=== PATIENT | female | born 1960 | race Caucasian/White ===

== ENCOUNTER 2017-03-05 17:49 | Emergency (ER) | payer BC ==
[2017-03-05 18:33] VITALS: BP 107/71
--- NOTE | 2017-03-05 18:36 | UC ---
HPI Febrile Illness - HPI Summary HPI Summary: 57 YEAR OLD FEMALE PRESENTS WITH COLD LIKE SYMPTOMS - History of Current Complaint Chief Complaint: UCRespiratory Time Seen by Provider: 03/05/17 18:36 Hx Obtained From: Patient Hx Last Menstrual Period: 06/02/2006 Onset/Duration: Started Minutes Ago Timing: Constant Initial Severity: Moderate Current Severity: Moderate - Allergy/Home Medications Allergies/Adverse Reactions: Allergies Allergy/AdvReac Type Severity Reaction Status Date / Time No Known Allergies Allergy Verified 03/05/17 18:33 Home Medications: Home Medications Melatonin 1 mg PO BEDTIME 03/05/17 [History Confirmed 03/05/17] Naproxen [Naproxen DR 500 MG TAB] 250 mg PO BID PRN 03/05/17 [History Confirmed 03/05/17] PMH/Surg Hx/FS Hx/Imm Hx - Surgical History Surgical History: None - Social History Alcohol Use: None Substance Use Type: None Smoking Status (MU): Heavy Every Day Tobacco Smoker Type: Cigarettes Amount Used/How Often: 1/2 PPD Length of Time of Smoking/Using Tobacco: 41 years Have You Smoked in the Last Year: Yes Household Exposure Type: Cigarettes - Immunization History Most Recent Influenza Vaccination: none Most Recent Tetanus Shot: 2000 Review of Systems Constitutional: Negative Skin: Negative Eyes: Negative ENT: Sinus Congestion Respiratory: Negative Cardiovascular: Negative Gastrointestinal: Negative Genitourinary: Negative Motor: Negative Neurovascular: Negative Musculoskeletal: Negative Neurological: Negative Psychological: Negative All Other Systems Reviewed And Are Negative: Yes Physical Exam Triage Information Reviewed: Yes Vital Signs: Initial Vital Signs Temp 37.2 C 03/05/17 18:29 Pulse 95 03/05/17 18:29 Resp 16 03/05/17 18:29 BP 107/71 03/05/17 18:29 Pulse Ox 97 03/05/17 18:29 Vital Signs Reviewed: Yes Eye Exam: Normal ENT: Positive: Nasal congestion Dental Exam: Normal Neck exam: Normal Neck: Positive: 1 Respiratory Exam: Normal Cardiovascular Exam: Normal Abdominal Exam: Normal Musculoskeletal Exam: Normal Neurological Exam: Normal Psychological Exam: Normal Skin Exam: Normal Course/Dx - Diagnoses Clinic Provider Diagnoses: SINUSITIS Discharge - Discharge Plan Condition: Stable Disposition: HOME Prescriptions: Amoxicillin PO (*) [Amoxicillin 500 MG CAP*] 500 mg PO TID #30 cap Patient Education Materials: Upper Respiratory Infection (ED) Referrals: Vernon Jacobson MD [Primary Care Provider] -
== END 2017-03-05 18:50 | disposition home or self-care (01) ==
LOC: UCEAST 17:49
DX: J32.9 Chronic sinusitis, unspecified (principal); F17.210 Nicotine dependence, cigarettes, uncomplicated
CPT/HCPCS: 99212; G0463

== ENCOUNTER 2017-05-07 08:44 | Emergency (ER) | payer BC ==
[2017-05-07] MEDS ORDERED: Albuterol/Ipratropium NEB.SOL* Albuterol 2.5 MG/Ipratropium 0.5 MG 3 ML INH ONE (10:03)
--- NOTE | 2017-05-07 10:08 | UC ---
HPI Febrile Illness - HPI Summary HPI Summary: Pt presents with complaint of cough, chills, fatigue, head congestion x 2 weeks. Pt states cough increasing x 3 days + yellow sputum. no documented fevers. pt has taken otc cough medication with short term relief. + wheeze and rhonci. Pt with sick family members pt does smoke cigarettes. Pt's medications reviewed this visit - History of Current Complaint Chief Complaint: UCGeneralIllness Time Seen by Provider: 05/07/17 09:39 Hx Obtained From: Patient Hx Last Menstrual Period: 06/02/2006 Onset/Duration: Started Days Ago Timing: Intermittent Initial Severity: Mild Current Severity: Moderate - Allergy/Home Medications Allergies/Adverse Reactions: Allergies Allergy/AdvReac Type Severity Reaction Status Date / Time No Known Allergies Allergy Verified 05/07/17 08:55 Home Medications: Home Medications Guaifenesin [Mucinex Maximum Strength] 05/07/17 [History] PMH/Surg Hx/FS Hx/Imm Hx Previously Healthy: Yes - Surgical History Surgical History: None - Social History 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 Lives: With Family Alcohol Use: None Substance Use Type: None Smoking Status (MU): Heavy Every Day Tobacco Smoker Type: Cigarettes Amount Used/How Often: 1/2 PPD Length of Time of Smoking/Using Tobacco: 41 years Have You Smoked in the Last Year: Yes Household Exposure Type: Cigarettes - Immunization History Most Recent Influenza Vaccination: none Most Recent Tetanus Shot: 2000 Review of Systems Constitutional: Chills, Fatigue Skin: Negative Eyes: Negative ENT: Nasal Discharge, Sinus Congestion Respiratory: Cough Gastrointestinal: Negative All Other Systems Reviewed And Are Negative: Yes Physical Exam Triage Information Reviewed: Yes Appearance: Well-Appearing, No Pain Distress, Well-Nourished Vital Signs: Initial Vital Signs Temp 98.9 F 05/07/17 08:56 Pulse 77 05/07/17 08:56 Resp 16 05/07/17 08:56 BP 124/73 05/07/17 08:56 Pulse Ox 98 05/07/17 08:56 Eye Exam: Normal Eyes: Positive: Conjunctiva Clear ENT: Positive: Hearing grossly normal, Pharynx normal, Nasal congestion, TMs normal, Uvula midline Dental Exam: Normal Neck exam: Normal Neck: Positive: Supple, Nontender, No Lymphadenopathy Respiratory Exam: Normal Respiratory: Positive: Chest non-tender, Lungs clear, Wheezing - few scattered wheeze speaking full easy sentences no retraction Cardiovascular Exam: Normal Cardiovascular: Positive: RRR, No Murmur Abdominal Exam: Normal Abdomen Description: Positive: Nontender, No Organomegaly, Soft Bowel Sounds: Positive: Present Musculoskeletal Exam: Normal Musculoskeletal: Positive: Strength Intact Neurological Exam: Normal Neurological: Positive: Alert Psychological Exam: Normal Skin Exam: Normal Diagnostics - Radiology No standard instances Xray Interpretation: Positive (See Comments) Radiology Interpretation Completed By: Radiologist - + enlarged LN copd nad Re-Evaluation - Re-Evaluation First Eval Comment: reviewed CXR with pt. no recent mammogram. breast exam unremarkable, no masses. pt with palpable ln in left axilla. reviewed with pcp. given xray images. will f/u with pcp - pt also given referral to physician services. states understanding and agreement with plan Course/Dx - Course Assessment/Plan: Pt presents with fatigue, cough, congestion progressive x 2 weeks. Pt with intermittent cough and wheeze. with h.o tobacco use. will check cxr. secretion precautions. anticipate abx - Diagnoses Clinic Provider Diagnoses: bronchitis. enlarged LN Discharge - Discharge Plan Condition: Stable Disposition: HOME Prescriptions: Albuterol HFA INHALER* [Ventolin HFA Inhaler*] 1 puff INH Q4H PRN #1 mdi PRN Reason: wheeze DOXYcycline CAP(*) [DOXYcycline 100MG CAP(*)] 100 mg PO BID #14 cap Patient Education Materials: Lymphadenopathy (ED), Acute Bronchitis (ED) Forms: *Work Release Referrals: [facility] [place] PHYSICIAN REFERRAL [Outside] No Primary Care Phys,NOPCP [Primary Care Provider] - Additional Instructions: - - Stay well hydrated. Drink plenty of non-alcoholic, non-caffinated beverages. - use inhaler, 2 puffs every 4 hours for wheezing - After you have been on antibiotics for 2 days - change your toothbrush and your pillowcase. These infections are spread by secretions - do NOT share eating or drinking utensils - clean items you share with other people such as cell phones, computer mouse, TV remote, computer tablets, etc - Alternate ibuprofen (Advil, Motrin) 600mg and Tylenol every 3 hours for pain or fever. Take with food. Do NOT take for more than 4-5 days. The doctor that evaluated you today reviewed your chest radiograph and discussed with you your emlarged lymph node. As was discussed, it is recommended you schedule a follow-up appointment with your primary care doctor. IF you do not have a doctor, you may call the physician referral number provided
--- NOTE | 2017-05-07 10:30 | RAD ---
INDICATION: Cough and fever COMPARISON: Most recent comparison chest x-rays dated June 14, 2007 TECHNIQUE: PA and lateral views of the chest were obtained. FINDINGS: The heart and mediastinum are normal in size and contour. On the AP view the lungs appear hyperaerated with the lung volume extending to the 11th ribs. On the lateral view there is flattening the diaphragm and increased retrosternal airspace. There is no large lobar or focal consolidation. Overlying the left axilla there is a nodule measuring 9 x 15 mm. Visualized bones are normal for the patient's age. There is no radiographic evidence of free air beneath the diaphragm IMPRESSION: 1. STIGMATA OF CHRONIC OBSTRUCTIVE PULMONARY DISEASE WITHOUT IDENTIFICATION OF ACUTE CARDIOPULMONARY ABNORMALITY. 2. DENSE NODULE OVERLYING THE LEFT AXILLA MEASURING 9 X 15 MM. PLEASE CORRELATE TO PHYSICAL EXAMINATION FINDINGS OF AXILLARY LYMPHADENOPATHY.
[2017-05-07 11:13] VITALS: BP 128/84
== END 2017-05-07 11:20 | disposition home or self-care (01) ==
LOC: UCEAST 08:44
DX: J40 Bronchitis, not specified as acute or chronic (principal); R59.9 Enlarged lymph nodes, unspecified; F17.210 Nicotine dependence, cigarettes, uncomplicated
CPT/HCPCS: 71020; 99212; A9270-GY; G0463

== ENCOUNTER 2017-07-10 09:24 | Emergency (ER) | payer BC ==
[2017-07-10 09:42] VITALS: BP 136/77
--- NOTE | 2017-07-10 10:54 | UC ---
UC General HPI - HPI Summary HPI Summary: cough, fever, chills no weight loss on/off for 4 months---patient has been on 2 courses of antibiotics with out relief, patient continues to smoke and has not followed up with primary care as recommended - History of Current Complaint Chief Complaint: UCGeneralIllness Stated Complaint: CONGESTED, COUGH, FEVER Time Seen by Provider: 07/10/17 10:36 Hx Obtained From: Patient Hx Last Menstrual Period: 06/02/2006 Onset/Duration: Gradual Onset, Lasting Weeks - 16, Still Present Onset Severity: Mild Current Severity: Mild Pain Intensity: 0 Associated Signs & Symptoms: Positive: Cough, Diarrhea, Fever, Nausea, Other - fatigue - Allergy/Home Medications Allergies/Adverse Reactions: Allergies Allergy/AdvReac Type Severity Reaction Status Date / Time No Known Allergies Allergy Verified 07/10/17 09:42 Home Medications: Home Medications Cough Medicine 30 ml PO Q4HR PRN 07/10/17 [History Confirmed 07/10/17] PMH/Surg Hx/FS Hx/Imm Hx Previously Healthy: No - patient has COPD but reports self as health but admits to not seeking medic Respiratory History: COPD - Surgical History Surgical History: None - Family History Known Family History: Positive: None - Social History 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 Lives: With Family Alcohol Use: None Substance Use Type: None Smoking Status (MU): Heavy Every Day Tobacco Smoker Type: Cigarettes Amount Used/How Often: 1 pack per week Length of Time of Smoking/Using Tobacco: 41 years Have You Smoked in the Last Year: Yes Household Exposure Type: Cigarettes - Immunization History Most Recent Influenza Vaccination: none Most Recent Tetanus Shot: 2000 Review of Systems Constitutional: Chills, Fatigue Skin: Negative Eyes: Negative ENT: Negative Respiratory: Cough Cardiovascular: Negative Gastrointestinal: Diarrhea, Nausea Genitourinary: Negative Motor: Negative Neurovascular: Negative Musculoskeletal: Negative Neurological: Negative Psychological: Negative Is Patient Immunocompromised?: No All Other Systems Reviewed And Are Negative: Yes Physical Exam Triage Information Reviewed: Yes Appearance: No Pain Distress, Ill-Appearing - appears older than stated age, Thin Vital Signs: Initial Vital Signs Temp 98.2 F 07/10/17 09:37 Pulse 84 07/10/17 09:37 Resp 18 07/10/17 09:37 BP 136/77 02/08/18 09:37 Pulse Ox 98 07/10/17 09:37 Vital Signs Reviewed: Yes Eye Exam: Normal Eyes: Positive: Conjunctiva Clear ENT Exam: Normal ENT: Positive: Normal ENT inspection, Hearing grossly normal, Pharynx normal, TMs normal, Uvula midline. Negative: Nasal congestion, Tonsillar swelling, Tonsillar exudate, Trismus, Muffled voice, Hoarse voice, Dental tenderness, Sinus tenderness Dental Exam: Normal Neck exam: Normal Neck: Positive: Supple, Nontender, Enlarged Nodes @ - right anterior cervical Respiratory Exam: Normal Respiratory: Positive: Chest non-tender, Lungs clear, No respiratory distress, No accessory muscle use, Decreased breath sounds Cardiovascular Exam: Normal Cardiovascular: Positive: RRR, No Murmur, Pulses Normal, Brisk Capillary Refill Abdominal Exam: Normal Abdomen Description: Positive: Nontender, No Organomegaly, Soft. Negative: CVA Tenderness (R), CVA Tenderness (L), Distended, Guarding, McBurney's Point Tenderness, Peritoneal Signs Bowel Sounds: Positive: Present Musculoskeletal Exam: Normal Musculoskeletal: Positive: Strength Intact, ROM Intact, No Edema Neurological Exam: Normal Neurological: Positive: Alert, Muscle Tone Normal Psychological Exam: Normal Skin Exam: Normal Course/Dx - Course Course Of Treatment: lab studies, rest, nicotine cesasation , follow as kamaljit with primary health care provider as planned-patient is agreeable and understands the importance of comprehensive follow up - Differential Dx - Multi-Symptom Provider Diagnoses: Lymphadenopathy, nicotine dependent, viral syndrome Discharge - Discharge Plan Condition: Stable Disposition: HOME Prescriptions: Benzonatate CAP* [Tessalon 100 MG CAP*] 100 mg PO TID PRN #30 cap PRN Reason: cough guaiFENesin/CODIEN 100MG-10MG* [Robitussin AC 100Mg-10Mg*] 5 - 10 ml PO Q4H PRN #120 ml MDD 40 PRN Reason: cough Patient Education Materials: How to Stop Smoking (ED), Lymphadenopathy (ED), COPD (Chronic Obstructive Pulmonary Disease) (ED), Chronic Cough (ED) Referrals: [facility] [place] PH[facility]ICIAN REFERRAL [Outside] - As Soon As Possible Srinivas BULLOCK,Jonathan Braun [Physician Washing Machine Assembler] - As Soon As Possible Additional Instructions: I am very concerned about you being still sick :( I am also very concerned about the swollen Lymph tissue that was identified on x-ray during your last visit-I understand you are working had taking care of your family but this is the time to do some preventive care and health maintenance for your self so you can continue to take care of them!-- Good Gravity Quitting smoking it is had work but you impress me as someone who works hard when she puts her mind to it!! [facility]! Just like we talked about :)
[2017-07-10 16:17] LABS: Hematocrit 40 % (35-47); Hemoglobin 13.5 g/dl (12.0-16.0); Mean Corpuscular HGB Conc 34 g/dl (31-36); Mean Corpuscular Hemoglobin 30 pg (27-31); Mean Corpuscular Volume 89 fL (80-97); Mean Platelet Volume 10 um3 (7.4-10.4); Platelet Count 160 10^3/ul (150-450); Red Blood Count 4.51 10^6/ul (4.0-5.4); Red Cell Distribution Width 15 % (10.5-15); White Blood Count 6.2 10^3/ul (3.5-10.8)
[2017-07-10 16:20] LABS: ABS Basophils 0 10^3/ul (0-0.2); ABS Eosinophils 0.1 10^3/ul (0-0.6); ABS Lymphocytes 1.9 10^3/ul (1.0-4.8); ABS Monocytes 0.4 10^3/ul (0-0.8); ABS Neutrophils 3.7 10^3/ul (1.5-7.7); ABS Nucleated RBC 0 10^3/ul; Eosinophil % 0.9 % (0-6); Lymphocyte % 30.8 % (25-47); Nucleated Red Blood Cells % 0.1
[2017-07-10 16:27] LABS: EGFR Non-African American 79.1 (>60)
== END 2017-07-10 11:10 | disposition home or self-care (01) ==
LOC: UCEAST 09:24
DX: B34.9 Viral infection, unspecified (principal); R59.1 Generalized enlarged lymph nodes; J44.9 Chronic obstructive pulmonary disease, unspecified; F17.210 Nicotine dependence, cigarettes, uncomplicated
CPT/HCPCS: 36415; 80053; 85025; 99212; G0463

== ENCOUNTER 2018-03-13 15:02 | Emergency (ER) | payer BC ==
[2018-03-13 15:56] VITALS: BP 111/76
--- NOTE | 2018-03-13 15:58 | UC ---
Respiratory Complaint HPI - HPI Summary HPI Summary: 58 yo female presents with a dry cough for the last week. She has a hx of bronchitis due to her smoking. Has been taking dayquill and nyquill without relief. Denies fever, chills, SOB, chest pain. She is still smoking daily. - History of Current Complaint Chief Complaint: UCRespiratory Stated Complaint: URI Time Seen by Provider: 03/13/18 15:58 Hx Obtained From: Patient Hx Last Menstrual Period: 06/02/2006 Severity Currently: None Pain Intensity: 0 Character: Cough: Nonproductive - Allergies/Home Medications Allergies/Adverse Reactions: Allergies Allergy/AdvReac Type Severity Reaction Status Date / Time No Known Allergies Allergy Verified 03/13/18 15:56 Home Medications: Home Medications D-Methorphan/PE/Acetaminophen [Multi Symptom Flu & Sever 20-10-500 mg] 1 pow PO 03/13/18 [History] Dm/Acetaminophen/Doxylamine [Vicks Nyquil Cold & Flu N 15-6.25-325 mg] 1 cap PO 03/13/18 [History] PMH/Surg Hx/FS Hx/Imm Hx Respiratory History: COPD - Surgical History Surgical History: None - Family History Known Family History: Positive: None - Social History Lives: With Family Alcohol Use: None Substance Use Type: None Smoking Status (MU): Heavy Every Day Tobacco Smoker Type: Cigarettes Amount Used/How Often: 1 pack per week Length of Time of Smoking/Using Tobacco: 41 years Have You Smoked in the Last Year: Yes Household Exposure Type: Cigarettes - Immunization History Most Recent Influenza Vaccination: none Most Recent Tetanus Shot: 2000 Review of Systems Constitutional: Negative Skin: Negative Eyes: Negative ENT: Negative Respiratory: Cough Cardiovascular: Negative Gastrointestinal: Negative Neurological: Negative Psychological: Negative All Other Systems Reviewed And Are Negative: Yes Physical Exam - Summary Physical Exam Summary: GENERAL: NAD. WDWN. No pain distress. SKIN: No rashes, sores, lesions, or open wounds. HEENT: Head: AT/NC Eyes: Conjunctiva clear without inflammation or discharge. Ears: Hearing grossly normal. TMs intact, no bulging, erythema, or edema. Nose: Nasal mucosa pink and moist. NTTP maxillary and frontal sinus. Throat: Posterior oropharynx without exudates, erythema, or tonsillar enlargement. Uvula midline. NECK: Supple. Nontender. No lymphadenopathy. CHEST: Decreased and distant breath sounds throughout. No r/r/w. No accessory muscle use. Breathing comfortably and in no distress. CV: RRR. Without m/r/g. Pulses intact. Cap refill <2seconds NEURO: Alert. PSYCH: Age appropriate behavior. Triage Information Reviewed: Yes Vital Signs: Initial Vital Signs Temp 97.9 F 03/13/18 15:38 Pulse 80 03/13/18 15:38 Resp 18 03/13/18 15:38 BP 111/76 03/13/18 15:38 Pulse Ox 96 03/13/18 15:38 Vital Signs Reviewed: Yes Diagnostic Evaluation - Laboratory O2 Sat by Pulse Oximetry: 96 Respiratory Course/Dx - Course Course Of Treatment: Pt declined CXR and duoneb treatment today. Suspect COPD exacerbation, will rx for zpak and prednisone and have her f/u with her PCP if she does not improve. - Differential Dx/Diagnosis Provider Diagnoses: COPD exacerbation Discharge - Sign-Out/Discharge Documenting (check all that apply): Patient Departure All imaging exams completed and their final reports reviewed: No Studies - Discharge Plan Condition: Stable Disposition: HOME Prescriptions: Azithromycin TAB* [Zithromax TAB (Z-JUANA) 250 mg #6 tabs] 2 tab PO .TODAY, THEN 1 DAILY #1 juana predniSONE TAB* [Deltasone 20 MG TAB*] 40 mg PO DAILY #9 tab Patient Education Materials: COPD (Chronic Obstructive Pulmonary Disease) (DC) Referrals: Jonathan Best [Primary Care Provider] - Additional Instructions: If you develop a fever, shortness of breath, chest pain, new or worsening symptoms - please call your PCP or go to the ED. 1) Continue to use your ProAir inhaler 2) Try to cut back on smoking - Billing Disposition and Condition Condition: STABLE Disposition: Home - Attestation Statements Provider Attestation: Per institutional requirements, I have reviewed the chart, however, I was not consulted specifically or made aware of this patient by the midlevel provider. I did not personally evaluate, interact with , or disposition this patient.
== END 2018-03-13 16:12 | disposition home or self-care (01) ==
LOC: UCEAST 15:02
DX: J44.1 Chronic obstructive pulmonary disease with (acute) exacerbation (principal); F17.210 Nicotine dependence, cigarettes, uncomplicated
CPT/HCPCS: 99212; G0463

== ENCOUNTER 2018-09-12 07:40 | Emergency (ER) | payer BC ==
[2018-09-12 07:48] VITALS: BP 113/70
[2018-09-12 08:10] LABS: Influenza A Molecular NEGATIVE (Negative); Influenza B Molecular NEGATIVE (Negative)
--- NOTE | 2018-09-12 08:33 | UC ---
Throat Pain/Nasal Walt HPI - HPI Summary HPI Summary: 58-year-old female presents with 8-10 day history of nasal congestion, sinus pain, postnasal drip, mild sore throat, and an occasionally productive cough for yellow sputum. States this morning she also had a couple of episodes of "soft" bowel movements. Denies fever, chills, ear pain, dysphagia, chest pain, shortness of breath, abdominal pain, nausea, or vomiting. - History of Current Complaint Chief Complaint: UCRespiratory Stated Complaint: SINUS ISSUES Time Seen by Provider: 09/12/18 08:30 Hx Obtained From: Patient Hx Last Menstrual Period: 06/02/2006 Pain Intensity: 0 - Allergies/Home Medications Allergies/Adverse Reactions: Allergies Allergy/AdvReac Type Severity Reaction Status Date / Time No Known Allergies Allergy Verified 09/12/18 07:49 Home Medications: Home Medications Varenicline Tartrate [Chantix] 1 tab PO DAILY 09/12/18 [History Confirmed ] PMH/Surg Hx/FS Hx/Imm Hx Respiratory History: COPD - Surgical History Surgical History: None - Family History Known Family History: Positive: Non-Contributory - Social History Occupation: Employed Full-time Lives: With Family Alcohol Use: None Substance Use Type: None Smoking Status (MU): Heavy Every Day Tobacco Smoker Type: Cigarettes Amount Used/How Often: 1 pack per week Length of Time of Smoking/Using Tobacco: 41 years Have You Smoked in the Last Year: Yes Household Exposure Type: Cigarettes - Immunization History Most Recent Influenza Vaccination: none Most Recent Tetanus Shot: 2000 Review of Systems All Other Systems Reviewed And Are Negative: Yes Constitutional: Negative: Fever, Chills Skin: Negative: Rash Eyes: Negative: Drainage, Eye Redness ENT: Positive: Sore Throat, Nasal Discharge, Sinus Congestion, Sinus Pain/ Tenderness. Negative: Ear Ache Respiratory: Positive: Cough. Negative: Shortness Of Breath Cardiovascular: Negative: Palpitations, Chest Pain Gastrointestinal: Positive: Diarrhea. Negative: Abdominal Pain, Vomiting, Nausea Genitourinary: Positive: Negative Musculoskeletal: Positive: Negative Neurological: Positive: Negative Is Patient Immunocompromised?: No Physical Exam - Summary Physical Exam Summary: GENERAL APPEARANCE: Alert and cooperative older adult female who appears older than stated age in no acute distress. EYES: Conjunctiva clear. No drainage. EARS: External auditory canals and tympanic membranes clear, hearing grossly intact. NOSE: Mild-moderate nasal congestion with mucosal erythema and edema. THROAT: Mild pharyngeal erythema with cobblestoning. No tonsilar inflammation, swelling, exudate, or lesions. Uvula midline. NECK: Neck supple, non-tender without lymphadenopathy. CARDIAC: Normal S1 and S2. No S3, S4 or murmurs. Rhythm is regular. There is no peripheral edema, cyanosis or pallor. Extremities are warm and well perfused. Capillary refill is less than 2 seconds. Peripheral pulses intact. LUNGS: Clear to auscultation without rales, rhonchi, wheezing or diminished breath sounds. Non-productive cough. ABDOMEN: Positive bowel sounds. Soft, nondistended, nontender. No guarding or rebound. No masses or hepatosplenomegally. MUSKULOSKELETAL: ROM intact to all extremities. No joint erythema or tenderness. Normal muscular development. Normal gait. SKIN: Skin normal color, texture and turgor with no lesions or eruptions. Triage Information Reviewed: Yes Vital Signs: Initial Vital Signs Temp 98.2 F 09/12/18 07:46 Pulse 93 09/12/18 07:46 Resp 18 09/12/18 07:46 BP 113/70 09/12/18 07:46 Pulse Ox 97 09/12/18 07:46 Vital Signs Reviewed: Yes Throat Pain/Nasal Course/Dx - Course Course Of Treatment: 58-year-old female presents with 8-10 day history of nasal congestion, sinus pain, postnasal drip, mild sore throat, and an occasionally productive cough for yellow sputum. States this morning she also had a couple of episodes of "soft" bowel movements. Denies fever, chills, ear pain, dysphagia, chest pain, shortness of breath, abdominal pain, nausea, or vomiting. Afebrile. Vital signs stable. Exam was remarkable for mild to moderate nasal congestion with mucosal erythema and edema, mild pharyngeal erythema with cobblestoning, nonproductive cough, and clear bilateral breath sounds. Rapid flu negative. Considering the duration of her symptoms and her underlying COPD I will start her on Augmentin 875 mg twice a day 10 days as well as recommend symptomatic treatment for an acute sinusitis. She is to follow-up with her primary care provider in 5 days if symptoms are not improving. Anticipatory guidance and warning symptoms were reviewed with the patient. Verbalizes understanding and agrees with plan of care. - Differential Dx/Diagnosis Differential Diagnosis/HQI/PQRI: Influenza, Sinusitis, URI Provider Diagnosis: Acute maxillary sinusitis Discharge - Sign-Out/Discharge Documenting (check all that apply): Patient Departure All imaging exams completed and their final reports reviewed: No Studies - Discharge Plan Condition: Stable Disposition: HOME Prescriptions: Amoxicillin/Clavulanate TAB* [Augmentin TAB 875*] 875 mg PO BID #20 tab Fluticasone NASAL SPRAY 50MCG* [Flonase NASAL SPRAY 50MCG*] 2 spray BOTH NARES DAILY #1 btl Patient Education Materials: Sinusitis (ED) Referrals: Srinivas BULLOCK,Jonathan Braun [Primary Care Provider] - 5 Days Additional Instructions: Your history and exam are consistent with a sinus infection. Considering the duration of your symptoms we will start you on an antibiotic. Start Augmentin 875 mg 1 tab twice a day for 10 days. Drink plenty of fluids to avoid dehydration especially if you are running any fever. Use a saline rinse kit such as Neti Pot or NeilMed at least twice a day to help thin secretions and promote drainage of the sinuses. Use fluticasone (Flonase) nasal spray 2 sprays each nostril once daily. Take over the counter acetaminophen (Tylenol) or ibuprofen (Advil, Motrin) according to directions as needed for pain or fever. Follow up with your primary care provider in 5 days if symptoms persist. Seek immediate medical attention in the emergency room if you have fever greater than 100.5 F despite taking acetaminophen or ibuprofen, have chest pain , difficulty breathing, are unable to swallow, or have any worsening of symptoms. - Billing Disposition and Condition Condition: STABLE Disposition: Home
== END 2018-09-12 08:48 | disposition home or self-care (01) ==
LOC: UCEAST 07:40
DX: J01.00 Acute maxillary sinusitis, unspecified (principal); J44.9 Chronic obstructive pulmonary disease, unspecified; F17.210 Nicotine dependence, cigarettes, uncomplicated
CPT/HCPCS: 99212; G0463

== ENCOUNTER 2019-02-18 09:00 | Emergency (ER) | payer BC ==
[2019-02-18 09:13] VITALS: BP 120/76
--- NOTE | 2019-02-18 10:17 | UC ---
Throat Pain/Nasal Walt HPI - HPI Summary HPI Summary: Patient is a 58yo female presenting with nasal congestion and sinus pressure x2 days. Notes sore throat. Denies cough. Denies ear pain and itchy/watery eyes. Denies SOB, wheezing, and difficulty breathing. Denies headache and fever. Notes chills this morning. Denies n/v/d. Patient states she is a smoker and has seasonal allergies. She is unsure if this is allergies or not. - History of Current Complaint Chief Complaint: UCRespiratory Stated Complaint: sinUS CONGESTION Time Seen by Provider: 02/18/19 10:02 Hx Obtained From: Patient Hx Last Menstrual Period: 06/02/2006 Onset/Duration: Gradual Onset, Lasting Days Severity: Mild Pain Intensity: 0 Pain Scale Used: 0-10 Numeric - Allergies/Home Medications Allergies/Adverse Reactions: Allergies Allergy/AdvReac Type Severity Reaction Status Date / Time No Known Allergies Allergy Verified 02/18/19 09:14 PMH/Surg Hx/FS Hx/Imm Hx - Surgical History Surgical History: None - Family History Known Family History: Positive: Non-Contributory - Social History Alcohol Use: None Substance Use Type: None Smoking Status (MU): Heavy Every Day Tobacco Smoker Type: Cigarettes Amount Used/How Often: 1 pack per week Length of Time of Smoking/Using Tobacco: 41 years Have You Smoked in the Last Year: Yes Household Exposure Type: Cigarettes - Immunization History Most Recent Influenza Vaccination: none Most Recent Tetanus Shot: 2000 Review of Systems All Other Systems Reviewed And Are Negative: Yes Constitutional: Positive: Chills. Negative: Fever, Fatigue Skin: Positive: Negative Eyes: Positive: Negative. Negative: Blurred Vision, Drainage, Eye Redness ENT: Positive: Sore Throat, Sinus Congestion, Sinus Pain/Tenderness. Negative: Ear Ache, Nasal Discharge Respiratory: Positive: Negative. Negative: Shortness Of Breath, Cough Cardiovascular: Positive: Negative. Negative: Palpitations, Chest Pain Gastrointestinal: Positive: Negative. Negative: Abdominal Pain, Vomiting, Diarrhea, Nausea Genitourinary: Positive: Negative Neurovascular: Positive: Negative Neurological: Positive: Negative. Negative: Headache Psychological: Positive: Negative Physical Exam Triage Information Reviewed: Yes Appearance: Well-Appearing, No Pain Distress, Thin Vital Signs: Initial Vital Signs Temp 97.7 F 02/18/19 09:06 Pulse 74 02/18/19 09:06 Resp 18 02/18/19 09:06 BP 120/76 02/18/19 09:06 Pulse Ox 100 02/18/19 09:06 Vital Signs Reviewed: Yes Eyes: Positive: Conjunctiva Clear ENT: Positive: Hearing grossly normal, Pharyngeal erythema, Nasal congestion, TMs normal, Uvula midline. Negative: Nasal drainage, TM bulging, TM dull, TM red, Tonsillar swelling, Tonsillar exudate, Hoarse voice, Sinus tenderness - notes pressure, but no tenderness Neck exam: Normal Neck: Positive: Supple, Nontender, No Lymphadenopathy Respiratory Exam: Normal Respiratory: Positive: Lungs clear, Normal breath sounds, No respiratory distress, No accessory muscle use Cardiovascular Exam: Normal Cardiovascular: Positive: RRR, Pulses Normal Musculoskeletal Exam: Normal Neurological: Positive: Alert Psychological Exam: Normal Throat Pain/Nasal Course/Dx - Course Course Of Treatment: Discussed with patient the likely viral etiology of upper respiratory symptoms. Patient instructed to take mucinex as prescribed for relief of nasal congestion. May use OTC nasal saline spray for symptomatic relief and take OTC analgesics as directed for pain relief. Directed to get plenty of rest and fluids, and return if symptoms worsen or do not resolve within 10 days. Patient voiced understanding and agreed to treatment plan. - Differential Dx/Diagnosis Provider Diagnosis: Upper respiratory infection, viral, Acute sore throat Discharge ED - Sign-Out/Discharge Documenting (check all that apply): Patient Departure All imaging exams completed and their final reports reviewed: No Studies - Discharge Plan Condition: Stable Disposition: HOME Prescriptions: guaiFENesin ER TAB [Mucinex*] 600 mg PO BID PRN #10 tab.er PRN Reason: Congestion Patient Education Materials: Upper Respiratory Infection (ED) Referrals: Jonathan Espino PA [Primary Care Provider] - Additional Instructions: As discussed, your symptoms are most likely caused by your seasonal allergies or a viral source. Take mucinex as prescribed for relief of nasal congestion. You may also use a nasal saline spray as directed for symptomatic relief. You may continue to take over the counter cough and cold medications for your cold symptoms. You may take ibuprofen as directed for pain relief. Get plenty of rest and fluids. Return or follow up with your primary care doctor if your symptoms worsen or do not resolve within 7 days. - Billing Disposition and Condition Condition: STABLE Disposition: Home
== END 2019-02-18 10:33 | disposition home or self-care (01) ==
LOC: UCEAST 09:00
DX: J06.9 Acute upper respiratory infection, unspecified (principal); J02.9 Acute pharyngitis, unspecified; F17.210 Nicotine dependence, cigarettes, uncomplicated
CPT/HCPCS: 99212; G0463

== ENCOUNTER 2019-04-13 15:07 | Emergency (ER) | payer BC ==
[2019-04-13 15:43] VITALS: BP 109/72
--- NOTE | 2019-04-13 16:36 | UC ---
Respiratory Complaint HPI - HPI Summary HPI Summary: 59-year-old female comes in with a chief complaint of dry cough for one month. Worse at night when she lays down. No pedal edema or calf pain. Patient is a smoker. Her primary care doctor has given her prescription for pro-air which she does take on occasion and it does help improve the coughing and shortness of breath associated with the coughing. She has also tried [id number] cough medicines which are not helping. No fevers or chills. She does have white sputum. - History of Current Complaint Chief Complaint: UCGeneralIllness Stated Complaint: CHEST CONGESTION, AND COUGH Time Seen by Provider: 04/13/19 15:54 Hx Last Menstrual Period: 06/02/2006 Pain Intensity: 0 - Allergies/Home Medications Allergies/Adverse Reactions: Allergies Allergy/AdvReac Type Severity Reaction Status Date / Time No Known Allergies Allergy Verified 04/13/19 15:37 PMH/Surg Hx/FS Hx/Imm Hx Previously Healthy: Yes - Surgical History Surgical History: None - Family History Known Family History: Positive: Non-Contributory - Social History Alcohol Use: None Substance Use Type: None Smoking Status (MU): Light Every Day Tobacco Smoker Type: Cigarettes Amount Used/How Often: 1 pack per week Length of Time of Smoking/Using Tobacco: 41 years Have You Smoked in the Last Year: Yes When Did the Patient Quit Smoking/Using Tobacco: Patient reports being down to 2 cigarettes a day Household Exposure Type: Cigarettes - Immunization History Most Recent Influenza Vaccination: none Most Recent Tetanus Shot: 2000 Review of Systems All Other Systems Reviewed And Are Negative: Yes Constitutional: Positive: Negative Skin: Positive: Negative Eyes: Positive: Negative ENT: Positive: Negative Respiratory: Positive: Shortness Of Breath, Cough, Other - SEE HPI Cardiovascular: Positive: Negative Gastrointestinal: Positive: Negative Motor: Positive: Negative Neurovascular: Positive: Negative Musculoskeletal: Positive: Negative. Negative: Calf Tenderness, Edema Neurological: Positive: Negative Psychological: Positive: Negative Is Patient Immunocompromised?: No Physical Exam Triage Information Reviewed: Yes Appearance: Well-Appearing, No Pain Distress, Well-Nourished Vital Signs: Initial Vital Signs Temp 98.3 F 04/13/19 15:39 Pulse 87 04/13/19 15:39 Resp 16 04/13/19 15:39 BP 109/72 04/13/19 15:39 Pulse Ox 97 04/13/19 15:39 Vital Signs Reviewed: Yes Eye Exam: Normal Eyes: Positive: Conjunctiva Clear ENT: Positive: Pharynx normal Neck: Positive: Supple Respiratory: Positive: Lungs clear, Normal breath sounds, No respiratory distress Cardiovascular: Positive: RRR Musculoskeletal: Positive: Strength Intact, ROM Intact, No Edema - NO CALF TENDERNESS Neurological: Positive: Alert, Muscle Tone Normal Psychological: Positive: Age Appropriate Behavior Skin Exam: Normal Respiratory Course/Dx - Course Course Of Treatment: Display Artist: Chang Liz Daniel, ([id number]) Processing Inspector: DOLORES ( NUANCE) Report Date: 04/13/2019 16:01:00 Report Status: Final ====== Start of Report Content Patient Name: AMARI MANZANO Medical Record#: [id number] Ordering Physician: Balaji Pearce MD Acct.#: [id number] : Age: 59 Sex: F Location: [facility] Exam Date: 04/13/19 160 ADM Status: REG ER Order Information: CHEST PA LAT 2 VWS Accession Number: [id number] CPT: 05340 HISTORY: COUGH,SPUTUM PRODUCTION COMPARISONS: May VIEWS: 4: Frontal dual-energy and lateral views of the chest. FINDINGS: CARDIOMEDIASTINAL SILHOUETTE: The cardiomediastinal silhouette is normal. TENA: The tena are normal. PLEURA: The costophrenic angles are sharp. No pleural abnormalities are noted. LUNG PARENCHYMA: There is hyperinflation with flattening of the diaphragm and expansion of the AP diameter of the chest. ABDOMEN: The upper abdomen is clear. There is no subphrenic gas. BONES AND SOFT TISSUES: No bone or soft tissue abnormalities are noted. OTHER: None. IMPRESSION : HYPERINFLATION, CONSISTENT WITH COPD. NO ACTIVE CARDIOPULMONARY DISEASE. <Electronically signed by Chang Liz MD in OV> 04/13/191620 Dictated By: Chang Liz MD Dictated Date/Time: 04/13/191619 Transcribed Date/Time: 04/13/191619 Copy to: CC:Jonathan BULLOCK; Balaji Pearce MD Imaging - [facility] Imaging - [facility] Imaging - [facility] [address] [facility] [address] ph ([phone]) ph ([phone]) ph ([phone]) End of Report Content I discussed the x-rays with the patient. To treat for COPD exacerbation. We discussed the use of antibiotics and have decided to use the antibiotics to take care of any possible infection that's a trigger for her COPD. If the patient worsens she is needs to get reevaluated. I let her know she is to follow-up with her primary care doctor for more long-term treatment of her COPD. - Differential Dx/Diagnosis Provider Diagnosis: COPD (chronic obstructive pulmonary disease) Discharge ED - Sign-Out/Discharge Documenting (check all that apply): Patient Departure All imaging exams completed and their final reports reviewed: Yes - Discharge Plan Condition: Stable Disposition: HOME Prescriptions: Azithromyxin DE (NF) [Z-De (Zithromax) 250 mg tabs #6] 2 tab PO .TODAY, THEN 1 DAILY #6 tab Benzonatate CAP* [Tessalon 100 MG CAP*] 100 mg PO TID PRN #20 cap PRN Reason: Cough predniSONE TAB* [Deltasone 20 MG TAB*] 40 mg PO DAILY #10 tab Patient Education Materials: COPD (Chronic Obstructive Pulmonary Disease) (ED) Referrals: Jonathan Espino PA [Primary Care Provider] - Additional Instructions: FOLLOW UP WITH YOUR DOCTOR. GET RECHECKED SOONER IF WORSE OR ANY QUESTIONS OR CONCERNS. - Billing Disposition and Condition Condition: STABLE Disposition: Home
== END 2019-04-13 16:55 | disposition home or self-care (01) ==
LOC: UCEAST 15:07
DX: J44.9 Chronic obstructive pulmonary disease, unspecified (principal); F17.210 Nicotine dependence, cigarettes, uncomplicated
CPT/HCPCS: 71046; 99212; G0463